=== PATIENT | female | born 1980 | race Caucasian/White ===

== ENCOUNTER 2016-06-04 16:57 | Emergency (ER) | payer BC, OTHER ==
[~2016-06-04] VITALS: Ht 167.6 cm; Wt 70.0 kg
[2016-06-04 17:04] VITALS: Ht 167.6 cm; Wt 70.0 kg
[2016-06-04] MEDS ORDERED: HYDROmorphONE 1 MG/ML SYG IV STA (17:58)
[2016-06-04] MEDS ORDERED: ONDANSETRON 4 MG INJ IV STA (17:58)
[2016-06-04] MEDS ORDERED: PANTOPRAZOLE 40 MG INJ IV ONE (18:30)
[2016-06-04 18:52] LABS: BASOPHILS % 0.1 % (0.0-2.0); EOSINOPHILS % 0.2 % (0.0-7.0); HEMATOCRIT 40.3 % (37.0-47.0); HEMOGLOBIN 13.5 g/dl (12.0-16.0); LYMPHOCYTES # 1.5 10^3/ul (0.8-2.9); LYMPHOCYTES % 13.6 % (15.0-51.0); MEAN CORPUSCULAR HEMOGLOBIN 27.6 pg (29.0-33.0); MEAN CORPUSCULAR HGB CONC 33.4 g/dl (32.0-37.0); MEAN CORPUSCULAR VOLUME 82.6 fl (82.0-101.0); MEAN PLATELET VOLUME 7.6 fl (7.4-10.4); MONOCYTE # 0.4 10^3/ul (0.3-0.9); MONOCYTES % 3.5 % (0.0-11.0); NEUTROPHIL # 9.1 10^3/ul (1.6-7.5); NEUTROPHILS % 82.6 % (39.0-77.0); PLATELET COUNT 208 10^3/UL (140-440); RED BLOOD COUNT 4.88 10^6/ul (4.20-5.40); RED CELL DISTRIBUTION WIDTH 14.7 % (11.5-14.5)
[2016-06-04 18:56] LABS: ADD UMIC NO; URINE BILIRUBIN (Dip) NEGATIVE (NEGATIVE); URINE BLOOD (Dip) NEGATIVE (NEGATIVE); URINE COLOR LT. YELLOW (YELLOW); URINE GLUCOSE (Dip) NEGATIVE (NEGATIVE); URINE KETONES (Dip) NEGATIVE (NEGATIVE); URINE LEUKOCYTE ESTERASE (Dip) NEGATIVE (NEGATIVE); URINE NITRITE (Dip) NEGATIVE (NEGATIVE); URINE TOTAL PROTEIN (Dip) NEGATIVE (NEGATIVE); URINE UROBILINOGEN (Dip) 0.2 E.U./dL (0.1-1.0)
[2016-06-04 18:59] LABS: CONDITION 1; LH ANALYZER COMMENTS 1
[2016-06-04 19:00] LABS: ALBUMIN 4.3 g/dl (3.3-4.9)
[2016-06-04 19:01] LABS: POTASSIUM 3.9 mmol/L (3.5-5.1)
[2016-06-04 19:03] LABS: ALBUMIN/GLOBULIN RATIO 1.38; BILIRUBIN,INDIRECT 0.6 mg/dl (0-1.1); BILIRUBIN,TOTAL 0.6 mg/dl (0.2-1.3); CREATININE 0.79 mg/dl (0.44-1.00); TOTAL PROTEIN 7.4 g/dl (6.1-8.1)
[2016-06-04 19:04] LABS: CALCIUM 9.9 mg/dl (8.4-10.2)
--- NOTE | 2016-06-04 19:36 | RADRPT ---
PROCEDURE: US Abdomen. CLINICAL INDICATION: abdominal pain TECHNIQUE: Multiple real-time images were acquired of the patient's right upper quadrant abdomen a nd retroperitoneum utilizing a high resolution transducer. COMPARISON: None FINDINGS: The liver demonstrates normal echogenicity. The liver is normal in size and no focal solid lesions are seen. The liver measures 15.7 cm in length. The portal vein is patent with normal direction of f low. No intrahepatic biliary dilatation is seen. The gallbladder is moderately distended. No gallstones are identified within the gallbladder. Ther e is no pericholecystic fluid or gallbladder wall thickening. The common bile duct measures 7 mm in maximal dimension. The visualized portions of the pancreas are unremarkable. The tail of the pancreas is not seen. No free fluid is identified. The right kidney is normal in size, and demonstrate normal echogenicity and cortical thickness. The right kidney measures 10.4 cm in long dimension. There is no evidence of hydronephrosis. There are no kidney stones. RPTAT: AA IMPRESSION: Moderately distended gallbladder with no evidence of gallstones. Mildly dilated CBD. .Irvin Horne MD, MD Date Time Electronically viewed and signed by .Irvin Horne MD, MD on 06/04/2016 19:36 .S/
[2016-06-04] MEDS ORDERED: FAMO-18 PO (19:43)
[2016-06-04] MEDS ORDERED: HYDR-902 PO (19:43)
--- NOTE | 2016-06-04 19:52 | ERD ---
ER Documentation Chief Complaint Date/Time DATE: 06/04/16 TIME: 19:50 Chief Complaint AP SINCE LAST NIGHT. HX GASTRITIS. SIMILAR/WORSE THAN PREVIOUS FLARE-UPS. HPI This 36-year-old female complains of a one-day history of epigastric abdominal pain. She denies fevers, vomiting. She has a history of gastritis and states that she does get flareups approximately her requiring ER visit. She is taking omeprazole at home. She denies urinary complaints or lower abdominal pain. She has some mild right upper quadrant abdominal pain. ROS All systems reviewed and are negative except as per history of present illness. Medications Home Meds Active Scripts Famotidine* (Pepcid*) 20 Mg Tablet, 20 MG PO BID for 14 Days, #30 TAB Prov:CHANDNI MORE MD 06/04/16 Hydrocodone/Acetaminophen ([place] 10-325 Tablet) 1 Each Tablet, 1 TAB PO Q6H Y for PAIN, #15 TAB Prov:CHANDNI MORE MD 06/04/16 PMhx/Soc Hx Miscellaneous Medical Probl: Yes (GASTRITIS) Physical Exam Vitals Vital Signs Date Time Temp Pulse Resp B/P Pulse Ox O2 Delivery O2 Flow Rate FiO2 06/04/16 17:04 98.5 72 20 123/77 98 06/04/16 17:01 98.6 78 20 138/92 98 Physical Exam Const: [] Alert, crying due to pain. Head: Atraumatic Eyes: Normal Conjunctiva ENT: Normal External Ears, Nose and Mouth. Neck: Full range of motion..~ No meningismus. Resp: Clear to auscultation bilaterally Cardio: Regular rate and rhythm, no murmurs Abd: Soft, tender primarily in the epigastric area. Right upper quadrant tenderness mildly. No rebound. No tenderness at McBurney's point., non distended. Normal bowel sounds Skin: No petechiae or rashes Back: No midline or flank tenderness Ext: No cyanosis, or edema Neur: Awake and alert Psych: Normal Mood and Affect Result Diagram: 06/04/16183706/04/161837 Results 24 hrs Laboratory Tests Test 06/04/16 18:38 Alanine Aminotransferase (ALT/SGPT) 41IU/L Albumin 4.3g/dl Albumin/Globulin Ratio 1.38 Alkaline Phosphatase 59IU/L Anion Gap 16 Aspartate Amino Transf (AST/SGOT) 33IU/L Basophils # 0.010^3/ul Basophils % 0.1% Blood Morphology Comment Blood Urea Nitrogen 11mg/dl Calcium Level 9.9mg/dl Carbon Dioxide Level 28mmol/L Chloride Level 101mmol/L Creatinine 0.79mg/dl Direct Bilirubin 0.00mg/dl Eosinophils # 0.010^3/ul Eosinophils % 0.2% Globulin 3.10g/dl Glucose Level 108mg/dl Hematocrit 40.3% Hemoglobin 13.5g/dl Indirect Bilirubin 0.6mg/dl Lipase 93U/L Lymphocytes # 1.510^3/ul Lymphocytes % 13.6% Mean Corpuscular Hemoglobin 27.6pg Mean Corpuscular Hemoglobin Concent 33.4g/dl Mean Corpuscular Volume 82.6fl Mean Platelet Volume 7.6fl Monocytes # 0.410^3/ul Monocytes % 3.5% Neutrophils # 9.110^3/ul Neutrophils % 82.6% Nucleated Red Blood Cells # 0.010^3/ul Nucleated Red Blood Cells % 0.0/100WBC Platelet Count 34095^3/UL Potassium Level 3.9mmol/L Red Blood Count 4.8810^6/ul Red Cell Distribution Width 14.7% Sodium Level 141mmol/L Total Bilirubin 0.6mg/dl Total Protein 7.4g/dl Urine Bilirubin NEGATIVE Urine Clarity CLEAR Urine Color LT. YELLOW Urine Glucose NEGATIVE% Urine Hemoglobin NEGATIVE Urine Ketones NEGATIVE Urine Leukocyte Esterase NEGATIVE Urine Nitrite NEGATIVE Urine Specific [place] 1.010 Urine Total Protein NEGATIVE Urine Urobilinogen 0.2 E.U./dL Urine pH 7.0 White Blood Count 11.010^3/ul Current Medications Medications (Trade) Dose Ordered Sig/Nneka Route PRN Reason Start Time Stop Time Status Last Admin Dose Admin Hydromorphone HCl (Dilaudid) 1 mg ONCE STAT IV 06/04/16 17:58 06/04/16 18:00 DC 06/04/16 18:16 Ondansetron HCl (Zofran Inj) 4 mg ONCE STAT IV 06/04/16 17:58 06/04/16 18:00 DC 06/04/16 18:15 Pantoprazole (Protonix Iv) 40 mg ONCE ONCE IV 06/04/16 18:30 1/1/17 18:31 DC 06/04/16 18:15 Procedures/MDM CBC shows a white blood cell count of 11, possibly stress affect. CMP shows no acute abnormalities or transaminitis lipase is normal. Urine is negative for infection and hCG is negative. Right upper quadrant ultrasound shows mildly common bile duct dilatation without evidence of cholecystitis or stones. Patient was given Dilaudid 1 mg IV, and Protonix 40 mg IV. Patient has epigastric abdominal pain of uncertain etiology with a history of gastritis. There is no current signs or symptoms of cholecystitis, biliary duct obstruction given the normal labs, signs or symptoms of appendicitis or acute abdomen, aortic disease, pancreatitis, obstruction or additional acute causes of abdominal pain.. Patient felt better after observation treatment. She will treated with a short course of [place] and Pepcid at home instructions to continue Prilosec. Patient is advised to follow-up with gastroenterology for ongoing management return to the ER for fevers, vomiting, blood, worsening pain , new or worsening symptoms. Departure Diagnosis: Primary Impression: Abdominal pain Abdominal location: epigastric Qualified Code: R10.13 - Epigastric pain Condition: Stable Patient Instructions: Abdominal Pain Additional Instructions: Labs showed no significant abnormalities and ultrasound shows no stones or signs of infection or significant obstruction. May be gastritis. Recheck for fevers, vomiting, blood, new or worsening symptoms or primary care doctor. CHANDNI MORE MD Jun 04, 2016 19:51
[2016-06-04 19:56] VITALS: BP 114/73; PULSE 65; RESP 16; TEMP 98.5
== END 2016-06-04 19:58 | disposition home or self-care (01) ==
LOC: FTE 16:57
DX: R10.13 Epigastric pain (principal)
CPT/HCPCS: 76705; 80053; 81003; 83690; 85025; C9113; J1170; J2405; 36415; 96374; 96375